=== PATIENT | male | born 1965 | race Caucasian/White ===

== ENCOUNTER → 2019-08-04 10:20 | Outpatient (CLI) | payer OTHER, SELFPAY ==
[2019-08-04 12:49] LABS: ALB/GLOB Ratio 1.1 RATIO (0.9-2.4); AST(SGOT) 22 U/L (15-37); Alanine Aminotransfer ALT/SGPT 38 U/L (16-61); Alkaline Phosphatase 68 U/L (45-117); Anion Gap 5 (5-15); BUN 14 mg/dL (7-18); BUN/Creat Ratio 14.3 RATIO (10-20); Calcium,Total 8.8 mg/dL (8.5-10.1); Chloride 105 mmol/L (98-107); Cholesterol 168 mg/dL (200); Creatinine, Serum 0.98 mg/dL (0.70-1.30); EST Glomerular Filtration Rate 85 mL/min (>60); Est Glom Filt Rate - Afr Amer 103 mL/min (>60); Globulin 3.6 g/dL (2.2-4.2); Glucose 113 mg/dL (74-106); High Density Lipoprotein 44 mg/dL; Potassium 4.3 mmol/L (3.5-5.1); Protein, Total 7.6 g/dL (6.4-8.2); Sodium Level 138 mmol/L (136-145); Triglycerides 99 mg/dL
[2019-08-04 12:50] LABS: Very Low Density Lipoprotein 20 mg/dL (5-40)
== END ==
PROVIDERS: PCP Family Medicine; Referring Provider Family Medicine; Visit Provider Family Medicine
DX: I10 Essential (primary) hypertension (principal)
CPT/HCPCS: 36415; 80053; 80061

== ENCOUNTER → 2019-08-07 16:19 | Outpatient (CLI) | payer OTHER, SELFPAY ==
--- NOTE | 2019-08-07 16:22 | RAD_ITS ---
STUDY: X-RAY CHEST REASON FOR EXAM: Male, 54 years old. Cough TECHNIQUE: Frontal view of the chest COMPARISON: None. FINDINGS: The lungs are clear. There are no pleural effusions. There is no pneumothorax. The heart is normal in size. There are sternotomy wires noted. The visualized osseous structures are within normal limits. RAD/Chest PA and Lateral IMPRESSION: No acute thoracic pathology. Electronically Signed: Mahendra Siddiqi, at 16:37 EDT Tel , Service support ,
== END ==
PROVIDERS: PCP Family Medicine; Referring Provider Family Medicine; Visit Provider Family Medicine
DX: J40 Bronchitis, not specified as acute or chronic (principal)
CPT/HCPCS: 71046

== ENCOUNTER → 2019-08-21 13:55 | Outpatient (CLI) | payer OTHER, SELFPAY ==
--- NOTE | 2019-08-21 13:59 | RAD_ITS ---
STUDY: X-RAY - PARANASAL SINUSES REASON FOR EXAM: Male, 54 years old. PATIENT STATES ONGOING SINUS ISSUES FOR YEARS, JUST NOT GETTING ANY BETTER. PAIN AND PRESSURE THROUGHOUT FACE AND FOREHEAD, AT TIMES HE FEELS IT MAYBE WORSE ON HIS RIGHT. TECHNIQUE: 3 view(s) of the paranasal sinuses were obtained. COMPARISON: None. FINDINGS: Almost complete opacification of the left maxillary sinus. Normal visualized facial bones. The soft tissue structures are unremarkable. RAD/Sinuses min 3 Views IMPRESSION: Almost complete opacification of the left maxillary sinus. Electronically Signed: Benjamin Buck, at 14:28 EDT , Service support ,
[2019-08-24 14:07] LABS: Alternaria alternata <0.10 kU/L (Class 0); Aspergillus fumigatus <0.10 kU/L (Class 0); Bahia Grass <0.10 kU/L (Class 0); Bermuda Grass <0.10 kU/L (Class 0); Bluegrass, Kentucky <0.10 kU/L (Class 0); Cat Hair/Dander, Standard <0.10 kU/L (Class 0); Cedar, Mountain <0.10 kU/L (Class 0); Cladosporium herbarum <0.10 kU/L (Class 0); Cockroach, American <0.10 kU/L (Class 0); D farinae Mite <0.10 kU/L (Class 0); D pteronyssinus <0.10 kU/L (Class 0); Dog Epithelia <0.10 kU/L (Class 0); Elm, American White <0.10 kU/L (Class 0); Hazelnut Tree <0.10 kU/L (Class 0); Hickory, White <0.10 kU/L (Class 0); Johnson Grass <0.10 kU/L (Class 0); Maple/Box Elder <0.10 kU/L (Class 0); Mucor racemosus <0.10 kU/L (Class 0); Mugwort <0.10 kU/L (Class 0); Mulberry, White <0.10 kU/L (Class 0); Oak, White <0.10 kU/L (Class 0); Penicillium chrysogen <0.10 kU/L (Class 0); Pigweed, Rough <0.10 kU/L (Class 0); Plantain, English <0.10 kU/L (Class 0); Ragweed, Short/Common <0.10 kU/L (Class 0); Sheep Sorrel(Dock) <0.10 kU/L (Class 0); Stemphylium herbarum <0.10 kU/L (Class 0); Sweet Gum <0.10 kU/L (Class 0); Sycamore, American <0.10 kU/L (Class 0)
[2019-08-24 16:07] LABS: Nettle <0.10 kU/L (Class 0)
== END ==
PROVIDERS: PCP Family Medicine; Referring Provider Family Medicine; Visit Provider Family Medicine
DX: J32.9 Chronic sinusitis, unspecified (principal)
CPT/HCPCS: 36415; 70220; 86003

== ENCOUNTER → 2019-09-07 | Outpatient (CLI) | payer OTHER, SELFPAY | END | disposition home or self-care (01) | LOC: LABSPEC 15:31 | PROVIDERS: PCP Family Medicine; Referring Provider Otolaryngology; Visit Provider Otolaryngology | DX: J32.9 Chronic sinusitis, unspecified (principal) | CPT/HCPCS: 87070; 87205 ==

== ENCOUNTER → 2019-09-14 07:23 | Outpatient (CLI) | payer OTHER, SELFPAY ==
--- NOTE | 2019-09-14 07:28 | CT_ITS ---
STUDY: CT FACIAL BONES WITHOUT CONTRAST REASON FOR EXAM: Male, 54 years old. CHRONIC SINUSITIS RADIATION DOSAGE (If Supplied By Facility): CTDIvol = ( 33.06 ) mGy, DLP = ( 831.28 ) mGycm TECHNIQUE: The patient was scanned in a multi detector CT scanner. Sagittal and coronal images were reconstructed. Individualized dose optimization techniques were used for this CT. COMPARISON: None. FINDINGS: Normal soft tissue structures. Normal orbital moore and orbital contents. Normal nasal bones and anterior nasal spine. Normal facial bones. There is no demonstrated fracture. There is mild mucosal thickening in the frontal sinuses, and sphenoid sinuses and right maxillary sinus. There is severe mucosal thickening in the ethmoid air cells and left maxillary sinus consistent with chronic sinusitis. CT/Sinus/Facial Bone IMPRESSION: Chronic sinusitis most severe in the ethmoid air cells and left maxillary sinus. Electronically Signed: Pedro Lopez, at 9:43 EDT Tel , Service support ,
== END ==
PROVIDERS: PCP Family Medicine; Referring Provider Otolaryngology; Visit Provider Otolaryngology
DX: J32.9 Chronic sinusitis, unspecified (principal)
CPT/HCPCS: 70486

== ENCOUNTER → 2019-11-21 | Outpatient (CLI) | payer OTHER, SELFPAY | END | disposition home or self-care (01) | LOC: LABSPEC 15:05 | PROVIDERS: PCP Family Medicine; Referring Provider Otolaryngology; Visit Provider Otolaryngology | DX: J32.9 Chronic sinusitis, unspecified (principal) | CPT/HCPCS: 87070; 87205 ==

== ENCOUNTER 2020-01-04 06:09 | Day surgery (SDC) | payer OTHER, SELFPAY ==
--- NOTE | 2019-12-26 14:14 | EKG12_ITS ---
Test Reason : PRE OP Blood Pressure : / mmHG Vent. Rate : 100 BPM Atrial Rate : 133 BPM P-R Int : 000 ms QRS Dur : 094 ms QT Int : 372 ms P-R-T Axes : 019 039 053 degrees QTc Int : 479 ms Sinus tachycardia with 2nd degree A-V block (Mobitz I) Abnormal ECG Confirmed by KATELYN HERNANDEZ ([id number]), image editor ANKIT HERNANDEZ ([id number]) on 12/29/2019 2:44:59 PM Referred By: Avery Peters Confirmed By:KATELYN HERNANDEZ
[2019-12-28 17:59] LABS: Hematocrit 43.3 % (40-54); Hemoglobin 14.2 g/dL (13.0-16.5); Mean Corp Hgb Conc 32.8 g/dL (32-36); Mean Corpuscular Hgb 29.2 pg (27.0-32.0); Mean Corpuscular Volume 88.9 fL (80-94); Mean Platelet Vol. 9.6 fl (6.2-12.0); Platelet Count 274 K/mm3 (150-450); RBC Distribution Width CV 12.9 % (11.6-14.6); RBC Distribution Width SD 41.7 fl (35.1-43.9); Red Blood Count 4.87 M/mm3 (4.6-6.2); White Blood Count 7.5 K/mm3 (4.4-11.0)
[2019-12-28 18:26] LABS: Anion Gap 5 (5-15); BUN 13 mg/dL (7-18); BUN/Creat Ratio 14.4 RATIO (10-20); Calcium,Total 8.5 mg/dL (8.5-10.1); Chloride 105 mmol/L (98-107); EST Glomerular Filtration Rate 93 mL/min (>60); Est Glom Filt Rate - Afr Amer 113 mL/min (>60); Glucose 94 mg/dL (74-106); Potassium 3.8 mmol/L (3.5-5.1); Sodium Level 136 mmol/L (136-145)
[2020-01-04] VITALS (8 sets, daily range): BP systolic 93–125; BP diastolic 60–85; PULSE 54–78; RESP 16–18; TEMP 36.3–36.6; O2SAT 93–98
[2020-01-04] MEDS: Lactated Ringers 1,000 ML 100 ML IV (06:55)
--- NOTE | 2020-01-04 07:30 | ETH_PTH ---
PATIENT: SHAZIA MANSFIELD LOC: [facility] [place] U#:[id number] AGE/SX: 54/M ROOM: RE01/04/[address]: Dr. Avery Peters MD : [id number] BED: DIS: 01/04/2020 SPEC #: [id number] RECD: 01/04/20 10:17 STATUS: JENNIFER JONO #: [id number] ARCENIO: 01/04/20 07:[address]: Avery Peters DEPT: SURGICAL PATHOLOGY RECD BY: Kaci Amezcua ENTERED: 01/04/20 11:15 SP TYPE: ETH TISS OTHR DR: Dr. Abelardo Edward MD Tissues: A - Ethmoid sinus, NOS B - Ethmoid sinus, NOS Procedures: Decalcification bone/plaque Surgery Specimen Level IV HEADER OPERATION: Total ethmoidectomy, maxillary antrostomy with Navigation PRE-OP DIAGNOSIS: Chronic sinusitis TISSUE SUBMITTED: A - Left sinus contents, B - Right sinus contents MICROSCOPIC DIAGNOSIS A. Left sinus contents: Fragments of respiratory mucosa with chronic inflammation and bone. B. Right sinus contents: Fragments of respiratory mucosa with chronic inflammation and bone. HALLE:gabriella 01/10/20 MICROSCOPIC DESCRIPTION Slides are reviewed. GROSS DESCRIPTION A - Received in fixative is one container labeled with the patient's name and designated left sinus contents. The specimen consists of multiple irregular fragments of light licea, gritty soft tissue that in aggregate measure 2.5 x 1 x 0.2 cm. The specimen is totally submitted in one cassette after decalcification. B - Received in fixative is one container labeled with the patient's name and designated right sinus contents. The specimen consists of multiple irregular fragments of light licea, gritty soft tissue that in aggregate measure 2.5 x 1 x 0.2 cm. The specimen is totally submitted in one cassette after decalcification. / AM:gabriella 01/04/20 TC:3 CPT: 53436 x2, [id number]
--- NOTE | 2020-01-04 07:39 | DCINST_ITS ---
You will use the following diet at home:: Regular Discharge Activity: No Restrictions Additional Activity Instructions:: No noseblowing. Start saline irrigation 4x/day on 01/05/20. Allergies/Adverse Reactions: Allergies codeine Allergy (Verified 12/26/19 13:07) Rash Medications to take at Discharge Clarithromycin 200 mg PO DAILY 12/26/19 Fluticasone 0.05% [Flonase Nasal Gilbert] 1 spray NASAL BID 12/26/19 Lisinopril [Zestril] 10 mg PO DAILY 12/26/19 Primary Care Physician: Abelardo Edward MD [Primary Care Provider] - Test Results: Test results from this visit will be discussed in further detail at your follow- up appointment, if applicable.
[2020-01-04] MEDS: Oxymetazoline 0.05% 1 SPRAY SPRAY.BTL 15 SPRAY (07:58)
--- NOTE | 2020-01-04 08:36 | PCM.OPRPT ---
Report of Operation Date of Procedure: 01/04/20 Pre-Operative Diagnosis: chronic sinusitis Post-Operative Diagnosis: same Surgery/Procedure Performed:: Bilateral total ethmoidectomy. Bilateral maxillary antrostomy. Left sphenoidotomy Type of Anesthesia:: General Anesthesiologist: Steven Giraldo Estimated Blood Loss (mL): minimal Description of Procedure: The patient was taken to the operating room on 01/04/20. The patient was placed in the supine position on the operating table. The patient was given sufficient general endotracheal anesthesia. The head of bed was elevated 30 degrees. The navigation system was placed and verified per protocol and found to be accurate. 0 and 30 degrees rigid nasal endoscopes were used throughout the entire case. The middle turbinate uncinate process were injected with 1% lidocaine with epinephrine bilaterally. The right middle turbinate was medialized with a [place] elevator. A ball-tipped sinus seeker was placed into the patient's maxillary sinus. The uncinate process was taken down using a microdebrider. Next, the ethmoid bulla was opened with a small curette. Anterior and posterior ethmoidectomy were then carried out using curette, sinus shaver and 45 degree [place] Amy forceps. Ethmoid cells were verified for relation to the skull base and orbit prior to being entered with the navigation system. I then placed Afrin pledgets into the sinonasal cavity. Next attention was turned to the left side. The middle turbinate was medialized with a [place] elevator. The uncinate process was taken down using a sinus shaver. The maxillary antrostomy was created with a back biter. The ethmoid bulla was opened with a small curette. Anterior posterior ethmoidectomy were then carried out using a sinus shaver curette and [place] Amy forceps. Ethmoid cells were verified for relation to the skull base and orbit prior to being entered with the navigation system. The sphenoid was then opened on the left side using a sinus shaver and confirmed with navigation. Hemostasis was then achieved using Afrin pledgets. The pledgets were then removed bilaterally and Kathy powder was applied bilaterally for absolute hemostasis. The procedure was then terminated. The patient was then awoken and brought to the recovery room in stable condition blood loss minimal, replacement none. Sponge, needle, instrument count were correct at the end of the procedure.
== END 2020-01-04 10:41 | disposition home or self-care (01) ==
LOC: SDC 06:14 → AC 06:14
PROVIDERS: Anesthesiology; PCP Family Medicine; Referring Provider Otolaryngology; Visit Provider Otolaryngology
PROC: (CPT 31255; principal; 2020-01-04 07:00)
DX: J32.8 Other chronic sinusitis (principal); Z11.59 Encounter for screening for other viral diseases; I10 Essential (primary) hypertension; Z79.899 Other long term (current) drug therapy; F17.200 Nicotine dependence, unspecified, uncomplicated
CPT/HCPCS: 00160; 31255; 31256; 31257; 61782; 36415; 80048; 85027; 87635; 88305; 88311; 93005; J7120; U0003

== ENCOUNTER → 2020-04-08 | Outpatient (CLI) | payer OTHER, SELFPAY | END | disposition home or self-care (01) | LOC: LABSPEC 15:19 | PROVIDERS: PCP Family Medicine; Referring Provider Family Medicine; Visit Provider Family Medicine | DX: U07.1 COVID-19 (principal) | CPT/HCPCS: 81001; 87086; 87635; U0003 ==

== ENCOUNTER → 2020-09-27 08:44 | Outpatient (CLI) | payer OTHER, SELFPAY ==
[2020-09-27 10:03] LABS: Absolute Neutrophil Count 3.2 X10^3/uL (2.0-7.7); Basophil# 0.05 X10^3/uL; Basophil% 0.9 % (0-1); Eosinophil# 0.08 X10^3/uL; Eosinophils% 1.5 % (0-5); Hematocrit 43.8 % (40-54); Hemoglobin 14.3 g/dL (13.0-16.5); Lymphocyte % 29.9 % (19-41); Mean Corp Hgb Conc 32.6 g/dL (32-36); Mean Corpuscular Hgb 28.8 pg (27.0-32.0); Mean Corpuscular Volume 88.1 fL (80-94); Mean Platelet Vol. 10.1 fl (6.2-12.0); Monocyte# 0.46 X10^3/uL; Monocyte% 8.6 % (0-10); NRBC Flagged by Analyzer 0 % (0-5); Neutrophil # 3.15 X10^3/uL (2.7-7.7); Neutrophil % 58.7 % (47-70); Platelet Count 254 K/mm3 (150-450); RBC Distribution Width CV 12.9 % (11.6-14.6); RBC Distribution Width SD 41.8 fl (35.1-43.9); Red Blood Count 4.97 M/mm3 (4.6-6.2); White Blood Count 5.4 K/mm3 (4.4-11.0)
[2020-09-27 10:38] LABS: ALB/GLOB Ratio 1.2 RATIO (0.9-2.4); AST(SGOT) 24 U/L (15-37); Alanine Aminotransfer ALT/SGPT 43 U/L (16-61); Alkaline Phosphatase 69 U/L (45-117); Anion Gap 5 (5-15); BUN 14 mg/dL (7-18); BUN/Creat Ratio 14.3 RATIO (10-20); Calcium,Total 9.1 mg/dL (8.5-10.1); Chloride 105 mmol/L (98-107); Cholesterol 170 mg/dL (200); Creatinine, Serum 0.98 mg/dL (0.70-1.30); EST Glomerular Filtration Rate 85 mL/min (>60); Est Glom Filt Rate - Afr Amer 102 mL/min (>60); Globulin 3.4 g/dL (2.2-4.2); Glucose 111 mg/dL (74-106); High Density Lipoprotein 47 mg/dL; Potassium 4.2 mmol/L (3.5-5.1); Protein, Total 7.4 g/dL (6.4-8.2); Sodium Level 137 mmol/L (136-145); Triglycerides 153 mg/dL; Very Low Density Lipoprotein 31 mg/dL (5-40)
== END ==
PROVIDERS: PCP Family Medicine; Referring Provider Family Medicine; Visit Provider Family Medicine
DX: I10 Essential (primary) hypertension (principal)
CPT/HCPCS: 36415; 80053; 80061; 85025

== ENCOUNTER → 2021-03-13 08:03 | Outpatient (CLI) | payer OTHER, SELFPAY ==
[2021-03-13 11:17] LABS: Anion Gap 6 (5-15); BUN 18 mg/dL (7-18); Calcium,Total 9.1 mg/dL (8.5-10.1); Chloride 103 mmol/L (98-107); Cholesterol 177 mg/dL (200); Creatinine, Serum 0.95 mg/dL (0.70-1.30); EST Glomerular Filtration Rate 88 mL/min (>60); Est Glom Filt Rate - Afr Amer 106 mL/min (>60); Glucose 112 mg/dL (74-106); High Density Lipoprotein 45 mg/dL; PSA,Total - Annual Screen 0.96 ng/mL (0.00-4.00); Potassium 4.5 mmol/L (3.5-5.1); Sodium Level 136 mmol/L (136-145); Triglycerides 161 mg/dL; Very Low Density Lipoprotein 32 mg/dL (5-40)
== END ==
PROVIDERS: PCP Family Medicine; Referring Provider Nurse Practitioner Family; Visit Provider Nurse Practitioner Family
DX: Z13.220 Encounter for screening for lipoid disorders (principal); Z12.5 Encounter for screening for malignant neoplasm of prostate; Z13.1 Encounter for screening for diabetes mellitus
CPT/HCPCS: 36415; 80048; 80061; 84153; G0103

== ENCOUNTER → 2022-02-03 | Outpatient (CLI) | payer OTHER, SELFPAY ==
--- NOTE | 2022-02-03 16:19 | RAD_ITS ---
STUDY: X-RAY CHEST REASON FOR EXAM: Male, 57 years old. Cough TECHNIQUE: Single AP portable view of the chest. COMPARISON: 08/07/2019 FINDINGS: The lungs are clear and expanded. There is no demonstrated pleural abnormality. Normal size heart. Median sternotomy wires. Normal mediastinum and cleve. Normal visualized pulmonary arteries. There is atherosclerotic calcification of the aortic arch. There are diffuse degenerative changes of the visualized thoracic spine. Normal visualized ribs, clavicles, and shoulders. There is no demonstrated abnormality of the visualized soft tissue structures of the upper abdomen. RAD/Chest PA and Lateral IMPRESSION: No acute cardiopulmonary disease. Electronically Signed: Fredrick Talavera MD at 2:36 EDT ,
[2022-02-03 18:07] LABS: Absolute Lymphocyte Count 2.36 X10^3/uL (0.83-4.51); Absolute Neutrophil Count 4.7 X10^3/uL (2.0-7.7); Basophil# 0.06 X10^3/uL; Basophil% 0.8 % (0-1); Eosinophil# 0.06 X10^3/uL; Eosinophils% 0.8 % (0-5); Hematocrit 46.1 % (40-54); Hemoglobin 15.5 g/dL (13.0-16.5); Lymphocyte # 2.36 X10^3/ul (0.83-4.51); Lymphocyte % 30.3 % (19-41); Mean Corp Hgb Conc 33.6 g/dL (32-36); Mean Corpuscular Hgb 30.1 pg (27.0-32.0); Mean Corpuscular Volume 89.5 fL (80-94); Mean Platelet Vol. 10.1 fl (6.2-12.0); Monocyte# 0.59 X10^3/uL; Monocyte% 7.6 % (0-10); NRBC Flagged by Analyzer 0 % (0-5); Neutrophil # 4.68 X10^3/uL (2.7-7.7); Neutrophil % 60.1 % (47-70); Platelet Count 246 K/mm3 (150-450); RBC Distribution Width CV 12.7 % (11.6-14.6); RBC Distribution Width SD 41.8 fl (35.1-43.9); Red Blood Count 5.15 M/mm3 (4.6-6.2); White Blood Count 7.8 K/mm3 (4.4-11.0)
[2022-02-03 18:27] LABS: Vitamin B12 531 pg/mL (211-911); Vitamin D,25 Hydroxy 16.2 ng/mL
[2022-02-03 18:54] LABS: ALB/GLOB Ratio 1.2 RATIO (0.9-2.4); AST(SGOT) 29 U/L (15-37); Alanine Aminotransfer ALT/SGPT 45 U/L (16-61); Albumin, Serum 4.4 g/dL (3.2-5.0); Alkaline Phosphatase 63 U/L (45-117); Anion Gap 9 (5-15); BUN 14 mg/dL (7-18); BUN/Creat Ratio 14.7 RATIO (10-20); Calcium,Total 9.2 mg/dL (8.5-10.1); Chloride 101 mmol/L (98-107); Creatinine, Serum 0.95 mg/dL (0.70-1.30); EST Glomerular Filtration Rate 87 mL/min (>60); Est Glom Filt Rate - Afr Amer 105 mL/min (>60); Ferritin 404 ng/mL (26-388); Globulin 3.7 g/dL (2.2-4.2); Glucose 96 mg/dL (74-106); Protein, Total 8.1 g/dL (6.4-8.2); Sodium Level 138 mmol/L (136-145); Thyroid Stim Hormone (TSH) 1.08 uIU/mL (0.358-3.74)
== END | disposition home or self-care (01) ==
LOC: MTLAB 16:17
PROVIDERS: PCP Family Medicine; Referring Provider Family Medicine; Visit Provider Family Medicine
DX: R05.9 Cough, unspecified (principal); R53.83 Other fatigue
CPT/HCPCS: 36415; 71046; 80053; 82306; 82607; 82728; 84443; 85025

== ENCOUNTER → 2022-09-02 | Outpatient (CLI) | payer OTHER, SELFPAY ==
[2022-09-02 16:04] LABS: Anion Gap 7 (5-15); BUN 15 mg/dL (7-18); BUN/Creat Ratio 16.5 RATIO (10-20); Calcium,Total 9.5 mg/dL (8.5-10.1); Chloride 101 mmol/L (98-107); Cholesterol 195 mg/dL (200); Creatinine, Serum 0.91 mg/dL (0.70-1.30); EST Glomerular Filtration Rate 92 mL/min (>60); Est Glom Filt Rate - Afr Amer 111 mL/min (>60); Glucose 103 mg/dL (74-106); High Density Lipoprotein 42 mg/dL; Potassium 4.1 mmol/L (3.5-5.1); Sodium Level 132 mmol/L (136-145); Triglycerides 203 mg/dL; Very Low Density Lipoprotein 41 mg/dL (5-40)
== END | disposition home or self-care (01) ==
PROVIDERS: PCP Family Medicine; Referring Provider Family Medicine; Visit Provider Family Medicine
DX: I10 Essential (primary) hypertension (principal)
CPT/HCPCS: 36415; 80048; 80061

== ENCOUNTER → 2022-12-14 | Outpatient (CLI) | payer OTHER, SELFPAY ==
[2022-12-14 14:58] LABS: Absolute Lymphocyte Count 2.15 X10^3/uL (0.83-4.51); Absolute Neutrophil Count 3.5 X10^3/uL (2.0-7.7); Basophil# 0.06 X10^3/uL; Basophil% 0.9 % (0-1); Eosinophil# 0.02 X10^3/uL; Eosinophils% 0.3 % (0-5); Hematocrit 43.9 % (40-54); Hemoglobin 14.9 g/dL (13.0-16.5); Lymphocyte # 2.15 X10^3/ul (0.83-4.51); Lymphocyte % 33.2 % (19-41); Mean Corp Hgb Conc 33.9 g/dL (32-36); Mean Corpuscular Hgb 29.8 pg (27.0-32.0); Mean Corpuscular Volume 87.8 fL (80-94); Mean Platelet Vol. 10.6 fl (6.2-12.0); Monocyte# 0.72 X10^3/uL; Monocyte% 11.1 % (0-10); NRBC Flagged by Analyzer 0 % (0-5); Neutrophil # 3.48 X10^3/uL (2.7-7.7); Neutrophil % 53.9 % (47-70); POSITIVE MORPHOLOGY YES; Platelet Count 200 K/mm3 (150-450); RBC Distribution Width CV 12.5 % (11.6-14.6); RBC Distribution Width SD 40.1 fl (35.1-43.9); White Blood Count 6.5 K/mm3 (4.4-11.0)
[2022-12-14 15:00] LABS: Differential Indicated SCAN CRITERIA MET
[2022-12-14 15:40] LABS: Differential Comment SCANNED
[2022-12-14 15:43] LABS: Vitamin B12 1025 pg/mL (211-911); Vitamin D,25 Hydroxy 74.8 ng/mL
[2022-12-14 16:51] LABS: AST(SGOT) 75 U/L (15-37); Alanine Aminotransfer ALT/SGPT 73 U/L (16-61); Albumin, Serum 3.9 g/dL (3.2-5.0); Alkaline Phosphatase 68 U/L (45-117); Anion Gap 6 (5-15); BUN 12 mg/dL (7-18); Chloride 96 mmol/L (98-107); EST Glomerular Filtration Rate 82 mL/min (>60); Est Glom Filt Rate - Afr Amer 99 mL/min (>60); Ferritin 1436 ng/mL (26-388); Globulin 3.8 g/dL (2.2-4.2); Glucose 112 mg/dL (74-106); Magnesium 2.3 mg/dL (1.6-2.6); Protein, Total 7.7 g/dL (6.4-8.2); Sodium Level 128 mmol/L (136-145); Thyroid Stim Hormone (TSH) 0.98 uIU/mL (0.358-3.74)
[2022-12-16 12:09] LABS: Lyme Scn Total Ab w/Rflx Negative (Negative)
== END | disposition home or self-care (01) ==
LOC: MTLAB 12:40
PROVIDERS: PCP Family Medicine; Referring Provider Family Medicine; Visit Provider Family Medicine
DX: R25.2 Cramp and spasm (principal); E55.9 Vitamin D deficiency, unspecified
CPT/HCPCS: 36415; 80053; 82306; 82607; 82728; 83735; 84443; 85025; 86618

== ENCOUNTER → 2023-01-13 | Outpatient (CLI) | payer OTHER, SELFPAY | END | disposition home or self-care (01) | LOC: SL 13:18 | PROVIDERS: PCP Family Medicine; Referring Provider Nurse Practitioner Acute Care; Visit Provider Nurse Practitioner Acute Care | DX: R06.83 Snoring (principal) | CPT/HCPCS: 95806 ==

== ENCOUNTER → 2023-02-08 | Outpatient (CLI) | payer OTHER, SELFPAY ==
--- NOTE | 2023-02-08 09:55 | US_ITS ---
STUDY: SUPERFICIAL ULTRASOUND - LATERAL LEFT CALF. REASON FOR EXAM: Male, 58 years old. Lump on left calf, possible hematoma, please confirm TECHNIQUE: A superficial ultrasound was performed with real-time and static hernandez-scale imaging. COMPARISON: None. FINDINGS: There is an elongated fluid collection in the region of clinical concern measuring 5.7 x 5.0 x 0.7 cm. No distinct hyperemia noted, findings may indicate resolving hematoma, seroma and less likely resolving abscess, clinical correlation recommended. US/Ext Non Vasc Limited/Soft Tiss IMPRESSION: Fluid collection in the region of clinical concern as described most compatible with resolving hematoma as described. Clinical correlation recommended. Electronically Signed: Abby Camacho MD at 18:16 EDT ,
== END | disposition home or self-care (01) ==
LOC: US 09:53
PROVIDERS: PCP Family Medicine; Referring Provider Family Medicine; Visit Provider Family Medicine
DX: T14.8XXA Other injury of unspecified body region, initial encounter (principal)
CPT/HCPCS: 76882

== ENCOUNTER → 2024-06-05 | Outpatient (CLI) | payer OTHER, SELFPAY ==
[2024-06-05 15:38] LABS: Absolute Lymphocyte Count 2.51 X10^3/uL (0.83-4.51); Absolute Neutrophil Count 5.2 X10^3/uL (2.0-7.7); Basophil# 0.06 X10^3/uL; Basophil% 0.7 % (0-1); Eosinophil# 0.04 X10^3/uL; Eosinophils% 0.5 % (0-5); Hematocrit 44.5 % (40-54); Hemoglobin 14.9 g/dL (13.0-16.5); Lymphocyte # 2.51 X10^3/ul (0.83-4.51); Lymphocyte % 30.1 % (19-41); Mean Corp Hgb Conc 33.5 g/dL (32-36); Mean Corpuscular Hgb 30.8 pg (27.0-32.0); Mean Corpuscular Volume 91.9 fL (80-94); Mean Platelet Vol. 10.3 fl (6.2-12.0); Monocyte# 0.55 X10^3/uL; Monocyte% 6.6 % (0-10); NRBC Flagged by Analyzer 0 % (0-5); Neutrophil # 5.15 X10^3/uL (2.7-7.7); Neutrophil % 61.6 % (47-70); Platelet Count 308 K/mm3 (150-450); RBC Distribution Width CV 12.6 % (11.6-14.6); RBC Distribution Width SD 42.5 fl (35.1-43.9); Red Blood Count 4.84 M/mm3 (4.6-6.2); White Blood Count 8.4 K/mm3 (4.4-11.0)
[2024-06-05 16:20] LABS: Vitamin D,25 Hydroxy 41.2 ng/mL
[2024-06-05 16:46] LABS: ALB/GLOB Ratio 1.2 RATIO (0.9-2.4); AST(SGOT) 26 U/L (15-37); Alanine Aminotransfer ALT/SGPT 43 U/L (16-61); Albumin, Serum 4.2 g/dL (3.2-5.0); Alkaline Phosphatase 73 U/L (45-117); Anion Gap 7 (5-15); BUN 13 mg/dL (7-18); Calcium,Total 9.6 mg/dL (8.5-10.1); Chloride 101 mmol/L (98-107); Cholesterol 183 mg/dL (200); Creatinine, Serum 1.08 mg/dL (0.70-1.30); EST Glomerular Filtration Rate 75 mL/min (>60); Est Glom Filt Rate - Afr Amer 90 mL/min (>60); Globulin 3.5 g/dL (2.2-4.2); Glucose 96 mg/dL (74-106); High Density Lipoprotein 54 mg/dL; Potassium 4.2 mmol/L (3.5-5.1); Protein, Total 7.7 g/dL (6.4-8.2); Sodium Level 134 mmol/L (136-145); Triglycerides 227 mg/dL; Very Low Density Lipoprotein 45 mg/dL (5-40)
== END | disposition home or self-care (01) ==
LOC: MFPLAB 12:12
PROVIDERS: PCP Family Medicine; Referring Provider Family Medicine; Visit Provider Family Medicine
DX: R29.90 Unspecified symptoms and signs involving the nervous system (principal); R53.83 Other fatigue
CPT/HCPCS: 36415; 80053; 80061; 82306; 84443; 85025

== ENCOUNTER → 2024-06-12 | Outpatient (CLI) | payer OTHER, SELFPAY ==
--- NOTE | 2024-06-12 07:55 | CT_ITS ---
STUDY: CT BRAIN WITH AND WITHOUT CONTRAST REASON FOR EXAM: Male, 59 years old. Stroke like symptom RADIATION DOSAGE (If Supplied By Facility): CTDIvol = ( 44.99 ) mGy, DLP = ( 1614.72 ) mGycm TECHNIQUE: Transaxial CT imaging of the brain was performed pre and post contrast administration. The examination was performed with intravenous administration of IV 50mL Isovue-370. Individualized dose optimization techniques were used for this CT. COMPARISON: None. FINDINGS: Normal soft tissue structures. Normal calvarium. Normal size ventricles and extra-axial spaces for the patient''s age. Normal white matter tracts of the cerebral hemispheres. Normal basal ganglia and thalami. Normal brainstem. Focal encephalomalacia is seen in the anterior lateral aspect of the right cerebellar hemisphere in keeping with prior ischemic insult. There is no intracranial hemorrhage. There are no findings of an acute ischemic infarction. Mucosal thickening along the lateral wall of the left maxillary sinus. CT/Brain/Head W/WO Contrast IMPRESSION: Focal encephalomalacia seen in the anterior lateral aspect of the right cerebellar hemisphere suggestive of prior ischemic insult. Electronically Signed: Benjamin Buck MD at 15:15 EST ,
== END | disposition home or self-care (01) ==
PROVIDERS: PCP Family Medicine; Referring Provider Family Medicine; Visit Provider Family Medicine
DX: R29.90 Unspecified symptoms and signs involving the nervous system (principal)

== ENCOUNTER → 2024-06-28 | Outpatient (CLI) | payer OTHER, SELFPAY ==
--- NOTE | 2024-06-28 10:57 | RAD_ITS ---
PROCEDURE: ORBITS FOR FOREIGN BODY REASON FOR EXAM: MRI clearance. TECHNIQUE: 2 view(s) of the orbits. COMPARISON: None. RAD/Orbits for Foreign Body IMPRESSION: No intraorbital metal is seen. The visualized paranasal sinuses and mastoid air cells appear clear. Reading Location: [id number]
== END | disposition home or self-care (01) ==
LOC: MTRAD 10:56
PROVIDERS: PCP Family Medicine
DX: Z98.890 Other specified postprocedural states (principal)
CPT/HCPCS: 70030

== ENCOUNTER → 2024-07-07 | Outpatient (CLI) | payer OTHER, SELFPAY | END | disposition home or self-care (01) | PROVIDERS: PCP Family Medicine | DX: Z86.73 Personal history of transient ischemic attack (TIA), and cerebral infarction without residual deficits (principal) | CPT/HCPCS: 95819 ==

== ENCOUNTER → 2024-07-25 | Outpatient (CLI) | payer OTHER, SELFPAY ==
--- NOTE | 2024-07-25 07:37 | MRI_ITS ---
PROCEDURE: Noncontrast MRI of the brain. REASON FOR EXAM: Personality changes. Attention frontal lobe. Mountain/mood swings. History of stroke 1997 TECHNIQUE: Multiplanar, multisequence MRI images of the brain were obtained without IV contrast. COMPARISON: CT brain 06/12/2024 FINDINGS: Bones of the calvarium are intact. Extracranial soft tissues show no specific abnormality. Major basilar intracranial flow voids are present. Mild mucosal opacification/thickening left maxillary sinus. Remaining paranasal sinuses and mastoid air cells are clear. The included upper cervical spinal cord is unremarkable. The orbits, sella, and parasellar structures show no specific abnormality. Basilar cisterns are clear. No cerebellopontine angle mass lesion. There are no areas of restricted diffusion. 2.5 cm area of encephalomalacia anterior medial right cerebellar hemisphere image 10 of the axial T2 sequence. Prominence of the cortical sulci and ventricular system, compatible with mild brain parenchymal atrophy. There are some minimal patchy areas of increased T2/FLAIR signal in the periventricular white matter of the cerebral hemispheres. Mild patchy increased T2/FLAIR signal adjacent to the encephalomalacia right cerebellar of the anteromedial hemisphere. MRI/Brain without Contrast IMPRESSION: Mild brain parenchymal atrophy. No acute intracranial abnormality. Mild probable chronic small-vessel ischemic changes. A 2.5 cm area of encephalomalacia anteromedial right cerebellar hemisphere, wit h some adjacent gliosis, which may be due to prior remote infarct. Mild mucosal opacification left maxillary sinus. Reading Location: [id number]
== END | disposition home or self-care (01) ==
PROVIDERS: PCP Family Medicine
DX: Z86.73 Personal history of transient ischemic attack (TIA), and cerebral infarction without residual deficits (principal)
CPT/HCPCS: 70551

== ENCOUNTER → 2025-02-08 | Outpatient (CLI) | payer BC, SELFPAY ==
[2025-02-08 13:04] LABS: AST(SGOT) 28 U/L (<=37); Alanine Aminotransfer ALT/SGPT 35 U/L (<=46); Albumin, Serum 4.5 g/dL (3.5-5.0); Alkaline Phosphatase 69 U/L (40-129); Anion Gap 10 (5-15); BUN 17 mg/dL (4-19); BUN/Creat Ratio 19.5 RATIO (10-20); Calcium,Total 9.8 mg/dL (7.6-11.0); Carbon Dioxide 25.9 mmol/L (21.0-32.0); Chloride 102 mmol/L (98-108); Cholesterol 123 mg/dL (<=200); Globulin 2.7 g/dL (2.2-4.2); Glucose 132 mg/dL (70-99); Low Density Lipoprotein Calc. 60 mg/dL; PSA,Total - Annual Screen 0.84 ng/mL (0.02-4.00); Potassium 4.9 mmol/L (3.3-5.1); Triglycerides 83 mg/dL; Very Low Density Lipoprotein 17 mg/dL (5-40); cholesterol:hdl ratio screen 2.67
== END | disposition home or self-care (01) ==
LOC: MFPLAB 10:20
PROVIDERS: PCP Family Medicine
DX: Z00.00 Encounter for general adult medical examination without abnormal findings (principal); Z12.5 Encounter for screening for malignant neoplasm of prostate
CPT/HCPCS: 36415; 80053; 80061; 84153; G0103